=== PATIENT | male | born 1995 ===

== ENCOUNTER 2018-07-08 13:58 | Emergency (ER) | payer OTHER ==
[2018-07-08 14:09] VITALS: BP 122/66
--- NOTE | 2018-07-08 14:12 | UC ---
Laceration HPI - HPI Summary HPI Summary: 23 yo male presents with laceration to plantar surface of right foot sustained yesterday. He tells me that he was walking barefoot and stepped on a rock causing this laceration. He cleansed the wound with alcohol and bandaged it with a band-aid and neosporin. He is here today because he is concerned about infection. He is UTD on his tetanus. - History Of Current Complaint Chief Complaint: UCLaceration Stated Complaint: R FOOT LAC Time Seen by Provider: 07/08/18 14:11 Hx Obtained From: Patient Laceration Location: Foot Mechanism Of Injury: Blunt Trauma Onset/Duration: Sudden Onset Severity: Mild Pain Intensity: 4 Pain Scale Used: 0-10 Numeric - Allergies/Home Medications Allergies/Adverse Reactions: Allergies Allergy/AdvReac Type Severity Reaction Status Date / Time No Known Allergies Allergy Verified 07/08/18 14:09 Home Medications: Home Medications Albuterol HFA INHALER* [Ventolin HFA Inhaler*] 1 puff 07/08/18 [History] PMH/Surg Hx/FS Hx/Imm Hx Respiratory History: Asthma - Surgical History Surgical History: None - Family History Known Family History: Positive: None - Social History Occupation: Student Lives: Dormitory/Roommates Alcohol Use: Occasionally Substance Use Type: Marijuana Substance Use Comment - Amount & Last Used: daily Smoking Status (MU): Current Some Day Smoker Review of Systems Constitutional: Negative Skin: Other - Laceration right foot Respiratory: Negative Cardiovascular: Negative Neurovascular: Negative Musculoskeletal: Negative Neurological: Negative Psychological: Negative All Other Systems Reviewed And Are Negative: Yes Physical Exam - Summary Physical Exam Summary: GENERAL: NAD. WDWN. No pain distress. SKIN: Right foot: plantar surface pad with 1.0cm linear laceration 2mm in width with surrounding granulation tissue. Clean without appreciable FBs. No streaking , bleeding, or drainage. NECK: Supple. Nontender. No lymphadenopathy. CHEST: No accessory muscle use. Breathing comfortably and in no distress. CV: Pulses intact. Cap refill <2seconds NEURO: Alert. CN II-XII grossly intact. PSYCH: Age appropriate behavior. Triage Information Reviewed: Yes Vital Signs: Initial Vital Signs Temp 98.2 F 07/08/18 14:06 Pulse 70 07/08/18 14:06 Resp 18 07/08/18 14:06 BP 122/66 07/08/18 14:06 Pulse Ox 97 07/08/18 14:06 Vital Signs Reviewed: Yes Laceration Course/Dx - Course/Dx Course Of Treatment: Wound cleansed with NS and bandaged with a band-aid. Will cover for infection with keflex and return if symptoms worsen. - Differential Dx - Laceration/Wound Provider Diagnoses: Laceration right foot Discharge - Sign-Out/Discharge Documenting (check all that apply): Patient Departure All imaging exams completed and their final reports reviewed: No Studies - Discharge Plan Condition: Stable Disposition: HOME Prescriptions: Cephalexin CAP* [Keflex CAP*] 500 mg PO BID #14 cap Patient Education Materials: Puncture Wound (DC) Referrals: No Primary Care Phys,NOPCP [Primary Care Provider] - Additional Instructions: If you develop a fever, shortness of breath, chest pain, new or worsening symptoms - please call your PCP or go to the ED. 1) Cover the area daily with a band-aid until well healed - Billing Disposition and Condition Condition: STABLE Disposition: Home
== END 2018-07-08 14:25 | disposition home or self-care (01) ==
LOC: UCEAST 13:58
DX: S91.311A Laceration without foreign body, right foot, initial encounter (principal); W22.8XXA Striking against or struck by other objects, initial encounter; Y92.9 Unspecified place or not applicable
CPT/HCPCS: 99202; G0463